=== PATIENT | male | born 1970 | race Two or more races ===

== ENCOUNTER 2018-03-14 22:22 | Emergency (ER) | payer MEDICARE ==
[~2018-03-14] VITALS: Ht 175.3 cm; Wt 85.0 kg
[2018-03-14 22:38] VITALS: BP 146/70
[2018-03-14] MEDS ORDERED: ONDANSETRON ODT 4 MG ONE (22:48)
[2018-03-14] MEDS ORDERED: ACETAMINOPHEN 500 MG TABLET ONE (22:48)
[2018-03-14] MEDS ORDERED: IBUPROFEN 200 MG TABLET ONE (22:48)
[2018-03-14] MEDS ORDERED: ONDANSETRON ODT 4 MG PO ONE (23:00)
[2018-03-14] MEDS ORDERED: IBUPROFEN 200 MG TABLET PO ONE (23:00)
[2018-03-14] MEDS ORDERED: ACETAMINOPHEN 500 MG TABLET PO ONE (23:00)
[2018-03-14 23:38] LABS: RAPID INFLUENZA A Negative (Negative); RAPID INFLUENZA B Negative (Negative)
== END 2018-03-15 00:03 | disposition home or self-care (01) ==
LOC: ED 22:55
DX: J06.9 Acute upper respiratory infection, unspecified (principal); R11.2 Nausea with vomiting, unspecified; E78.00 Pure hypercholesterolemia, unspecified
CPT/HCPCS: 87400; 99284; Q0162

== ENCOUNTER 2018-06-01 10:49 | Emergency (ER) | payer OTHER, MEDICARE ==
[~2018-06-01] VITALS: Ht 175.3 cm; Wt 85.9 kg
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
[2018-06-01] MEDS ORDERED: SODIUM CHLORIDE FLUSH 10ML SYR IVF ONE (11:30)
[2018-06-01] MEDS ORDERED: DIAZEPAM 5 MG/ML, 2ML IV ONE (11:30)
[2018-06-01] MEDS ORDERED: KETOROLAC 30 MG/1 ML IVPush ONE (11:30)
[2018-06-01] MEDS ORDERED: KETOROLAC 30 MG/1 ML ONE (11:46)
[2018-06-01 11:56] LABS: BASOPHILS # (AUTO) 0.04 x10^3/uL (0-0.1); BASOPHILS % (AUTO) 1 % (0-1); EOSINOPHILS % (AUTO) 2 % (1-7); LYMPHOCYTES # (AUTO) 2.26 x10^3/uL (1-3.4); LYMPHOCYTES % (AUTO) 38 % (22-44); MD NO; MEAN CORPUSCULAR HEMOGLOBIN 32.1 pg (27.5-34.5); MEAN CORPUSCULAR HGB CONC 34.9 g/dL (33.2-36.2); MEAN CORPUSCULAR VOLUME 91.9 fL (81-97); MEAN PLATELET VOLUME 8.3 fL (7.4-10.4); MONOCYTES # (AUTO) 0.33 x10^3/uL (0.2-0.8); MONOCYTES % (AUTO) 6 % (2-9); NEUTROPHILS # (AUTO) 3.28 x10^3/uL (1.8-6.8); NEUTROPHILS % (AUTO) 55 % (42-75); PLATELET COUNT 246 x10^3/uL (130-400); RED BLOOD COUNT 4.62 x10^6/uL (4.38-5.82); RED CELL DISTRIBUTION WIDTH 13.6 % (9.4-14.8)
[2018-06-01 12:06] LABS: ALBUMIN 4.2 g/dL (3.4-5.0); ANION GAP 7 mmol/L (5-15); CALCIUM 8.7 mg/dL (8.5-10.1); CHLORIDE 109 mmol/L (98-107); CREATININE 0.94 mg/dL (0.7-1.3)
[2018-06-01] MEDS ORDERED: OMNIPAQUE 350 MG/ML, 100ML BOTTLE ONE (13:12)
[2018-06-01 14:15] VITALS: BP 113/64
== END 2018-06-01 14:29 | disposition home or self-care (01) ==
LOC: ED 12:51
DX: S39.012A Strain of muscle, fascia and tendon of lower back, initial encounter (principal); S33.5XXA Sprain of ligaments of lumbar spine, initial encounter; S70.02XA Contusion of left hip, initial encounter; V49.49XA Driver injured in collision with other motor vehicles in traffic accident, initial encounter; Y93.89 Activity, other specified; Y92.89 Other specified places as the place of occurrence of the external cause; Y99.8 Other external cause status
CPT/HCPCS: 36415; 72110; 73502; 74177; 80048; 82040; 85025; 93005; 96374; 96375; 99284; J1885; J3360; Q9967